=== PATIENT | male | born 1970 | race Caucasian/White ===

== ENCOUNTER → 2017-03-21 | Outpatient (CLI) | payer OTHER ==
[~2017-03-21] MED LIST: ACETAMINOPHEN500 M3 PO; COZAAR25 MG PO; IMODIUM 2MG. CAP2 MG PO; LISINOPRIL 5MG T5 MG; NASAL DECONGEST30 ML NS; PHENERGAN12.5 M3 PO; PRAVASTATIN 20M20 MG; ROBITUSSIN DM 105 ML PO
[2017-03-21 10:47] LABS: BUN 12 mg/dL (7-18)
[2017-03-21 10:54] LABS: GFR (ESTIMATED) 71 ML/MIN (>60)
== END ==
LOC: LAB 08:41
PROVIDERS: Internal Medicine
DX: I10 Essential (primary) hypertension (principal); E78.5 Hyperlipidemia, unspecified; R73.02 Impaired glucose tolerance (oral)